=== PATIENT | female | born 1965 | race Caucasian/White ===

== ENCOUNTER 2017-10-12 15:32 | Emergency (ER) | payer SELFPAY, OTHER ==
[2017-10-12] MEDS: KETOROLAC 30 MG INJ IV (16:12)
[2017-10-12] MEDS: ONDANSETRON 4 MG INJ IV (16:12)
[2017-10-12] MEDS: SOD CHLORIDE 0.9% 1,000 ML IV (16:17)
[2017-10-12] MEDS: ACETAMINOPHEN 325 MG TAB PO (17:15)
[2017-10-12] MEDS: LORAZEPAM 2 MG INJ IV (17:25)
[2017-10-12] MEDS: HYDROCODONE/APAP (5/325) TAB PO (18:44)
[2017-10-12] MEDS: KETOROLAC 15 MG INJ IV (21:55)
== END 2017-10-12 22:22 | disposition home or self-care (01) ==
LOC: FTE 15:32
DX: S22.20XA Unspecified fracture of sternum, initial encounter for closed fracture (principal); S06.0X0A Concussion without loss of consciousness, initial encounter; R07.89 Other chest pain; V43.62XA Car passenger injured in collision with other type car in traffic accident, initial encounter
CPT/HCPCS: 70450; 71250; 72125; 93005; 96374; 96375; 96376; 99285-25